=== PATIENT | male | born 1990 | race Caucasian/White ===

== ENCOUNTER 2022-12-29 21:12 | Emergency (ER) | payer OTHER, SELFPAY ==
[2022-12-29 21:15] VITALS: BP 147/69; PULSE 86; RESP 16; TEMP 36.7; O2SAT 100; BMI 27.0
--- NOTE | 2022-12-29 21:23 | DI.RAD.S_ITS ---
PROCEDURE: XR KNEE LT 3V INDICATIONS: fall, knee injury, unable to bend knee TECHNIQUE: 3 views of the knee were acquired. COMPARISON: None. FINDINGS: Bones: No fractures or dislocations. No suspicious bony lesions. Soft tissues: There is a moderate joint effusion. No suspicious soft tissue calcifications. IMPRESSION: 1. No fracture or dislocation. 2. Moderate joint effusion. Dictated by: Shane Cueva M.D. on 12/29/2022 at 22:52 Approved by: Shane Cueva M.D. on 12/29/2022 at 22:52
--- NOTE | 2022-12-29 23:40 | ED.LOWEXIN ---
HPI - Extremity Injury (Lower) General Chief Complaint: Extremity Injury, Lower Stated Complaint: lt knee injury playing baseball Time Seen by Provider: 12/29/22 21:36 Source: patient Mode of arrival: Ambulatory History of Present Illness HPI Narrative: Patient is a 32-year-old male who is here for evaluation of the left knee injury. Patient states he was playing catcher. He states he was standing near home plate when a runner was coming in from [employer] [place] and hit his left knee. Since that time he has had pain on the inside of the left knee. He has been ambulatory. He states he can walk in a straight line but when he turns he has discomfort. He can not specifically say whether or not he feels unstable with the knee. He is no prior injuries to the knee. No other injuries from the event. Has not tried anything for the symptoms prior to arrival. Review of Systems Musculoskeletal Musculoskeletal: Reports system reviewed and no additional complaints, except as documented Integumentary/Breasts Skin/Breast: Reports system reviewed and no additional complaints, except as documented Neurologic Neurologic: Reports system reviewed and no additional complaints, except as documented Exam Initial Vital Signs Initial Vital Signs: Vital Signs Temperature 98.1 F 12/29/22 21:15 Pulse Rate 86 12/29/22 21:15 Respiratory Rate 16 12/29/22 21:15 Blood Pressure 147/69 H 12/29/22 21:15 Pulse Oximetry 100 12/29/22 21:15 Oxygen Delivery Method Room Air 12/29/22 21:15 HENAL Head: normal to inspection and normocephalic Skin General: no rashes or lesions noted Extrem Other: Discomfort with palpation in the medial aspect of the left knee. No tenderness with hamstring palpation. No tenderness of the quadriceps or patellar tendon. Patient is able to flex and extend. Has a small effusion. No lateral knee tenderness. Unable to test ACL PCL MCL and LCL secondary to the discomfort that he is having. Procedures Orthopedic Splinting/Casting Injury #1: Side: left Lower Extremity Injury Location: knee Lower Extremity Immobilizer: Paul wrap Post splinting neuro exam: no change Post splinting vascular exam: no change Placed by: Nursing Course Orders Ordered: ED Orders 12/29/22 21:23 XR knee LT 3V Stat Vital Signs Vital signs: Vital Signs - 8 hr 12/29/22 21:15 12/29/22 23:48 Temperature 98.1 F Pulse Rate 86 86 Respiratory Rate 16 16 Blood Pressure 147/69 H 123/75 Pulse Oximetry 100 98 Oxygen Delivery Method Room Air Room Air MDM - Extremity Injury (Lower) Imaging Data Extremity x-ray #1: Radiologist's Impression: PROCEDURE:? XR KNEE LT 3V ? INDICATIONS:? fall, knee injury, unable to bend knee ? TECHNIQUE:? 3 views of the knee were acquired.? ? COMPARISON:? None. ? FINDINGS:? ? Bones:? No fractures or dislocations.? No suspicious bony lesions.? ? Soft tissues:? There is a moderate joint effusion.? No suspicious soft tissue calcifications.? ? ? IMPRESSION:? ? 1. No fracture or dislocation. ? 2. Moderate joint effusion. [facility] Narrative Medical decision making narrative: X-ray shows no signs of fracture nor dislocation he does have quite a bit of discomfort on the medial aspect of the left knee. Does have a small effusion. I did discuss this with him. We did discuss the possibility of a soft tissue injury to include ligamentous or even meniscal injury however we will need to wait until the acute nature of the injury improves. If he is still having discomfort or specifically instability then he potentially could require more advanced imaging such as an MRI. He was given an Paul bandage for his comfort. We discussed care instructions and return precautions. He expressed understanding and agreement. Discharge Plan Departure Patient Disposition: Home Clinical Impression: Left knee sprain Instructions: How to Use an Elastic Bandage-Knee Sprain, DI for Knee Sprain, How To Perform RICE (Rest, Ice, Compress, Elevate) Activity Restrictions/Additional Instructions: There were no fractures or dislocations noted on the x-rays. You need to keep your leg elevated and use ice. You can walk on it as tolerated. If your symptoms persist after the next 7-10 days you do need to be re-evaluated by your primary doctor and potentially need a referral for physical therapy. Referrals: ProviderNaty [Primary Care Provider] - Stand Alone Forms: Patient Portal/API
[2022-12-29 23:48] VITALS: BP 123/75; PULSE 86; RESP 16; O2SAT 98
== END 2022-12-29 23:50 | disposition home or self-care (01) ==
PROVIDERS: Emergency Provider Emergency Medicine
DX: S83.92XA Sprain of unspecified site of left knee, initial encounter (principal); W18.30XA Fall on same level, unspecified, initial encounter; Y93.64 Activity, baseball
CPT/HCPCS: 73562; 99282; 99283